=== PATIENT | female | born 1970 | race Two or more races ===

== ENCOUNTER 2025-03-26 17:22 | Emergency (ER) | payer OTHER ==
[~2025-03-26] VITALS: Ht 162.6 cm; Wt 61.0 kg
[2025-03-26 17:43] VITALS: TEMP 98.5; O2SAT 99
[2025-03-26 20:00] VITALS: PULSE 82
[2025-03-26] MEDS: KETOROLAC 15MG/ML VIAL IM ONE (20:00)
[2025-03-26 20:36] VITALS: BP 161/82; RESP 19
[2025-03-26] MEDS: LIDOCAINE 5% PATCH TOP SCH (20:36)
[2025-03-26] MEDS ORDERED: IBUP-1455 MT (21:39)
[2025-03-26] MEDS ORDERED: CYCL10TA21 MT (21:39)
[2025-03-26] MEDS ORDERED: LIDO-53 TP (21:39)
== END 2025-03-26 22:31 | disposition home or self-care (01) ==
LOC: ER 17:22
DX: S50.811A Abrasion of right forearm, initial encounter (principal); M54.2 Cervicalgia; R07.89 Other chest pain; R51.9 Headache, unspecified; E11.9 Type 2 diabetes mellitus without complications; E78.00 Pure hypercholesterolemia, unspecified; I10 Essential (primary) hypertension; Z88.5 Allergy status to narcotic agent; V89.2XXA Person injured in unspecified motor-vehicle accident, traffic, initial encounter; Y93.89 Activity, other specified; Y92.410 Unspecified street and highway as the place of occurrence of the external cause; Y99.8 Other external cause status
CPT/HCPCS: 99283; 71101; 96372; J1885